=== PATIENT | female | born 1940 | race Two or more races ===

== ENCOUNTER 2024-04-01 15:27 | Emergency (ER) | payer BC ==
[~2024-04-01] VITALS: Ht 157.5 cm; Wt 46.7 kg
[2024-04-01] MEDS ORDERED: IBU600 MG PO (19:15)
[2024-04-01] MEDS ORDERED: KETOROLAC TROMETHAMINE 60 MG VIAL IM ONE ×2 (19:27→19:30)
[2024-04-01] MEDS ORDERED: DEXAMETHASONE SODIUM PHOSPHATE 4 MG/ML VIAL ONE (19:27)
[2024-04-01] MEDS ORDERED: DEXAMETHASONE SODIUM PHOSPHATE 4 MG/ML VIAL IM ONE (19:30)
== END 2024-04-01 19:39 | disposition home or self-care (01) ==
LOC: ER 15:30
DX: M25.562 Pain in left knee (principal)